=== PATIENT | male | born 1945 | race African-American/Black ===

== ENCOUNTER 2018-05-15 10:16 | Inpatient (IN) | payer OTHER ==
[~2018-05-15] VITALS: Ht 167.6 cm; Wt 79.7 kg
--- NOTE | ~2018-05-15 | HC ---
[facility] [place] [address] CONSULTATION Name: PAT MONTES Room #: 206 ADM IN M.R.#: [id number] Admission: 05/15/18 Attend Phys: Satya Arauz MD Discharge: Date of : 49 Report #: [id number] THIS REPORT FOR: //name// CC: Satya Lam MD [facility] Anastasia Spencer REASON FOR CONSULTATION: Severe iron deficiency. HISTORY OF PRESENT ILLNESS: The patient is a very pleasant 73-year-old gentleman from the [place] area, who has noticed maybe about a 4-5 month history of feeling more short of breath and some abdominal pain with exertion and walking upstairs. He recently had seen his primary care physician, was found to be anemic and he was sent to the ER for further evaluation. Here, his hemoglobin was initially around 6, today it is 5.2. White count 5.2, differential normal, platelets 130, MCV around 70 and it had been in the normal range or even higher in the past. Also, iron tests are back, showed an iron of 14, TIBC 263, percent saturation of 4. Haptoglobin 102, total bilirubin 0.6, creatinine 1.6, folate 7.4, B12 720, absolute retic count 0.082. Note that UA is not done, the patient denies any blood in his urine or stool. Reports that he was Hemoccult negative here. He has not had a UA here. His last colonoscopy was maybe about 10 years ago. He is not sure when his last hemoglobin was checked before last week. He has been told he is anemic in the distant past. His diet is meat and potatoes, eats red meat at least 4-5 times per week, though he says he does eat lot more potatoes. His weight has been about the same, he may have lost a few pounds. REVIEW OF SYSTEMS: Denies unusual headache, mouth sores, trouble swallowing, cough, chest pain, diarrhea or constipation, blood in his urine or stool. Has had some ankle swelling, been doing some diuretics recently. No skin rash. PAST MEDICAL HISTORY: Notable for a history of prostate cancer, recently seen by Dr. Anastasia Spencer, had been treated with radiation therapy, he is thought to be EDWARDO. Also, history of seizures, last one was maybe about 1974. Also, history of coronary artery disease, hypertension. Note, he had an SD in November of 2006 with stenting x 2, has a herniated disk. He is also a Jain. He has high cholesterol. Note also, I believe there is a history of a partial kidney resection in the past. FAMILY HISTORY: No one else with blood disorders. 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 Never smoker. Alcohol: None. Street drugs: None. [address] [address] CONSULTATION Name: PAT MONTES JANE Room #: 206P [facility] IN M.R.#: [id number] Admission: 05/15/18 Attend Phys: Satya Arauz MD Discharge: Date of : 49 Report #: [id number] PHYSICAL EXAMINATION: GENERAL: The patient appears his stated age. VITAL SIGNS: He is 5 feet 6, 167.6 cm. Weight is 175.7 pounds or 79.7 kilograms. Blood pressure is 175/79, O2 sat 100, respirations 18, pulse 73, temperature 97.9. MOOD: He is alert and pleasant. NEUROLOGIC: Speech and thought pattern normal. Moving all extremities. LUNGS: Clear. HEART: Regular rate. ABDOMEN: Soft, no masses. EXTREMITIES: Without clubbing, cyanosis. ASSESSMENT AND PLAN: 1. Severe iron deficiency with a hemoglobin of 5.2. The patient declines blood products. He will check with his elders, I would suggest IV iron, though if he refuses that, would definitely give him an oral iron. He also needs to be seen by GI. They would probably not scope at this time and will probably need upper and lower endoscopy to look for the source of his iron loss. Could also consider PPI or acid marcelle, but we will defer to GI about that. We will also check an EPO level. We will also check with Dr. Hopper for lab from past 2 years. 2. Chronic kidney disease. Continue following, check EPO level. 3. History of prostate cancer with radiation therapy, could be proctitis, endoscopy would rule this out, has no obvious bleeding. As above, we will also check UA. 4. History of pernicious anemia, B12 is adequate. Continue replacement. 5. Hypertension, a little high today. Continue medications. 6. Coronary artery disease and stenting. Continue meds per Dr. Lam. Could consider holding aspirin. 7. Jain. The patient will check with elders. 8. Seizure history. None. We will follow with you. By: 0910 1114 Rafyf Harrison MD /nt
[~2018-05-15 10:16] MED LIST: ACETAMINOPHEN-1 EAC1 PO; ACETAMINOPHEN325 M1 PO; ASPIRIN325 PO; ASPIRIN81 M2 PO; BYSTOLIC20 MG PO; CADUET 10 MG-41 EACH PO; CARBAMAZEPINE100 M2 PO; CARBAMAZEPINE200 M2 PO; CATAPRES-TTS 10.1 MG PO; CATAPRES-TTS 10.1 MG TD; CLONIDINE0.1 PO; CYANOCOBALAM1000 MCG PO; DIOVAN HCT 3201 EAC1 PO; ENDOCET 5-3251 EACH PO; FERREX-150 PLU150 MG PO; HYDRALAZINE 10M10 MG PO; K-DUR10 MEQ PO; LATANOPROST 0.2.5 ML OPHTHALMIC; LORTAB 5-500 T1 EAC1 PO; NAPROSYN500 MG PO; NORCO 5-325 TA1 EACH PO; ONE DAILY MULT1 EAC2 PO; PERCOCET 5-3251 EACH PO; SENOKOT-S1 TA2 PO; VERAMYST10 GM NASAL; VITAMIN B-1000 MCG/2 IM
[2018-05-15 10:17] VITALS: BP 145/55
[2018-05-15] MEDS ORDERED: ATORVASTATIN CA40 MG PO (10:43)
[2018-05-15] MEDS ORDERED: COREG25 MG PO (10:44)
[2018-05-15] MEDS ORDERED: FLONASE 0.05%50 MCG NASAL (10:47)
[2018-05-15] MEDS ORDERED: SPIRONOLACTONE25 M1 PO (10:49)
[2018-05-15] MEDS ORDERED: EDARBI80 MG PO (10:49)
[2018-05-15] MEDS ORDERED: COMBIGAN EYE DR10 ML OPHTHALMIC (10:49)
[2018-05-15] MEDS ORDERED: ALDACTONE50 MG PO (11:13)
[2018-05-15 11:23] LABS: MCV 71.7 fL (80.0-100.0); RDW 18.3 % (10.5-14.5); WBC 5.8 thou/uL (4.0-11.0)
[2018-05-15 11:24] LABS: ABSOLUTE NEUTROPHILS 4.6 thou/uL (1.4-8.2); BASOPHILS 0.1 % (0.0-2.0); HEMATOCRIT 21.3 % (42.0-52.0); LYMPHOCYTES 11.4 % (24.0-44.0); MCH 21.2 pg (26.0-34.0); MCHC 29.5 g/dL (28.0-37.0); MONOCYTES 10.3 % (1.0-8.0); PLATELET COUNT 171 thou/uL (150-400); POLYS 78.2 % (36.0-66.0); RBC 2.97 mil/uL (4.50-6.00)
[2018-05-15 11:26] LABS: ANION GAP 5 mmol/L (7-16); BUN 23 mg/dL (7-18); CHLORIDE 105 mmol/L (98-107); CO2 31 mmol/L (21-32); CREATININE 1.7 mg/dL (0.7-1.3); GLUCOSE 159 mg/dL (74-106); HEMOGLOBIN 6.3 gm/dL (14.0-18.0); SODIUM 141 mmol/L (136-145)
[2018-05-15 11:28] LABS: POTASSIUM 3.9 mmol/L (3.5-5.1)
[2018-05-15 11:34] LABS: ALBUMIN 4.1 g/dL (3.4-5.0); DIRECT BILIRUBIN 0.2 mg/dL (<0.1-0.3); SGOT 37 U/L (15-37); SGPT 26 U/L (30-65); TOTAL BILIRUBIN 0.6 mg/dL (<0.1-1.0); TOTAL PROTEIN 8.2 g/dL (6.4-8.2); TROPONIN-I <0.06 ng/mL (<0.06)
[2018-05-15 14:38] VITALS: BP 164/71
[2018-05-15 15:27] VITALS: BP 174/73
--- NOTE | 2018-05-15 16:18 | NUR ---
ASSUMED CARE OF PT AT 1525 THIS SHIFT. PT WAS ADMITTED FROM ER WITH ANEMIA, AND HEMAGLOBIN 6.3. PT IS A JAHOVAH'S WITNESS AND DOES NOT CONSENT TO BLOOD TRANSFUSION. PT GETS SOB WITH EXCERTION. PT IS COOPERATIVE, AND DENIES ANY PAIN. PT IS CURRENTLY RESTING COMFORTABLY IN ROOM, ASSESSMENTS ARE DOCUMENTED. PT HAS SPOUSE IN ROOM, EDUCATION WAS PROVIDED. PLAN OF CARE IS TO CONTINUE TO MONITOR PT CLOSELY AT THIS TIME.
[2018-05-15 16:26] LABS: ABSOLUTE RETIC COUNT 0.0827 10^6/uL; OBSERVED RETIC COUNT 2.55 % (0.6-2.6)
[2018-05-15 16:28] LABS: % SATURATION 4 % (20-39); IRON 14 ug/dL (65-175); TIBC 363 ug/dL (250-450)
[2018-05-15 16:56] LABS: FOLIC ACID 17.6 ng/mL (8.6-58.9)
[2018-05-15 19:50] VITALS: BP 166/64
[2018-05-16] VITALS (7 sets, daily range): BP systolic 154–175; BP diastolic 60–79
--- NOTE | 2018-05-16 03:46 | NUR ---
PT. AOX4; NO C/O DIZZINESS OR WEAKNESS; ABLE TO AMBULATE FROM BED TO RESTROOM; NO C/O PAIN; SBP ON THE 160'S EARLY ON THE NIGHT; HS BP GIVEN; SBP DECREASED TO 140'S AT MIDNIGHT; ABLE TO REST DURING THE NIGHT; ASSESSMENT CHARGED; FOLLOWING POC;
[2018-05-16 04:27] LABS: CALCIUM 8.8 mg/dL (8.5-10.1); CREATININE 1.6 mg/dL (0.7-1.3); POTASSIUM 3.4 mmol/L (3.5-5.1)
[2018-05-16 04:50] LABS: MCH 20.7 pg (26.0-34.0); MCHC 29.4 g/dL (28.0-37.0); MCV 70.4 fL (80.0-100.0); RBC 2.5 mil/uL (4.50-6.00); RDW 18.1 % (10.5-14.5); WBC 5.2 thou/uL (4.0-11.0)
[2018-05-16 05:00] LABS: HEMATOCRIT 17.6 % (42.0-52.0); HEMOGLOBIN 5.2 gm/dL (14.0-18.0)
--- NOTE | 2018-05-16 08:21 | EKG ---
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1945 Requested By: Juice Fisher Order Number: [id number] MD: eLx Skinner Measurements Intervals [place] Rate: 77 P: 20 MO: 217 QRS: -30 QRSD: 121 T: 124 QT: 426 QTc: 483 Interpretive Statements Sinus rhythm Borderline prolonged MO interval Left atrial enlargement LVH with IVCD and secondary repol abnrm Possible inferior infarct, old Compared to ECG 11/14/2012 06:59:[address] segment elevation is no longer present Right bundle-branch block no longer present Electronically Signed On 05-16-2018 8:21:04 SYSTEMS DEVELOPMENT MANAGER by Lex Skinner [email or web address] <ELECTRONICALLY SIGNED> By: Lex Skinner MD, [facility] 05/16/18 0821 1524 1524 Lex Skinner MD, [facility] /EPI
--- NOTE | 2018-05-16 08:35 | EKG ---
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 : 1945 Requested By: Julia Ruano Order Number: [id number] MD: Lex Skinner Measurements Intervals [place] Rate: 76 P: 49 NH: 217 QRS: -35 QRSD: 121 T: 120 QT: 427 QTc: 481 Interpretive Statements Sinus rhythm Borderline prolonged [place] interval T-wave abnormality, consider lateral ischemia Borderline prolonged QT interval Compared to ECG 11/14/2012 06:59:59 No significant change was found Electronically Signed On 05-16-2018 8:35:34 [place] [place] by Lex Skinner [email or web address] <ELECTRONICALLY SIGNED> By: Lex Skinner MD, [facility] 05/16/18 0835 0707 0707 Lex Skinner MD, [facility] /EPI
--- NOTE | 2018-05-16 10:05 | 2DMMODE ---
[facility] [address] [place] [address] 2 D/M-MODE ECHOCARDIOGRAM Name: SIMONPAT JANE Room #: 206-P ADM IN M.R.#: [id number] Admission: 05/15/18 Attend Phys: Satya Arauz MD Discharge: Date of : 49 Date of Service: 05/16/18 1005 Report #: [id number] THIS REPORT FOR: //name// APPROVED REPORT Study performed: 05/16/2018 08:59:37 EXAM: Comprehensive 2D, Doppler, and color-flow Echocardiogram Patient Location: Bedside Room #: 206 Status: routine BSA: 1.89 HR: 71 bpm BP: 163/73 mmHg Rhythm: NSR Other Information Study Quality: Good Indications Dyspnea CAD Cardiomyopathy Hypertension/HDD 2D Dimensions RVDd: 40.68 mm IVSd: 15.64 (7-11mm) LVOT Diam: 19.18 (18-24mm) LVDd: 52.59 mm PWd: 14.28 (7-11mm) Ascending Ao: 30.46 (22-36mm) LVDs: 41.54 (25-40mm) Aortic Root: 33.17 mm IVC: 22.00 mm Volumes Left Atrial Volume (Systole) Single Plane 4CH: 110.35 mL Single Plane 2CH: 71.49 mL LA ESV Index: 51.00 mL/m2 Aortic Valve AoV Peak Fredy.: 2.03 m/s AO Peak Gr.: 16.56 mmHg LVOT Max P.24 mmHg LVOT Max V: 1.14 m/s RENA Vmax: 1.62 cm2 Mitral Valve E/A Ratio: 1.4 [facility] [address] [place] [address] 2 D/M-MODE ECHOCARDIOGRAM Name: PAT MONTES JANE Room #: 206-P [facility] IN [facility]#: [id number] Admission: 05/15/18 Attend Phys: Satya Arauz MD Discharge: Date of : 49 Date of Service: 05/16/18 1005 Report #: [id number] MV Decel. Time: 211.68 ms MV E Max Fredy.: 1.57 m/s MV A Fredy.: 1.11 m/s MV PHT: 61.39 ms IVRT: 50.75 ms Pulmonary Valve PV Peak Fredy.: 1.19 m/s PV Peak Gr.: 5.70 mmHg Pulmonary Vein P Vein S: 0.44 m/s P Vein A: 0.18 m/s P Vein D: 0.63 m/s P Vein A Dur.: 60.0 msec P Vein S/D Ratio: 0.70 Tricuspid Valve TR Peak Fredy.: 3.34 m/s TR Peak Gr.: 44.56 mmHg PA Pressure: 55.00 mmHg Left Ventricle The left ventricle is normal size. Moderate concentric left ventricular hypertrophy. Left ventricular systolic function is mildly decreased. LVEF is 45%. Grade IV - fixed restrictive diastolic dysfunction. Right Ventricle The right ventricle is normal size. The right ventricular systolic function is normal. Atria Left atrium is dilated. Right atrium is dilated. Aortic Valve The aortic valve is normal in structure. No aortic regurgitation is present. There is no aortic valvular stenosis. Mitral Valve The mitral valve is normal in structure. Mild mitral regurgitation. No evidence of mitral valve stenosis. Tricuspid Valve The tricuspid valve is normal in structure. There is mild tricuspid regurgitation. Estimated PAP 55 mmHg. There is moderate pulmonary hypertension. [facility] [address] [place] [address] 2 D/M-MODE ECHOCARDIOGRAM Name: PAT MONTES Room #: 206-P [facility] IN M.R.#: [id number] Admission: 05/15/18 Attend Phys: Satya Arauz MD Discharge: Date of : 49 Date of Service: 05/16/18 1005 Report #: [id number] Pulmonic Valve The pulmonary valve is normal in structure. Mild pulmonic regurgitation. Great Vessels The aortic root is normal in size. IVC is dilated and collapses >50% with inspiration. Pericardium There is no pericardial effusion. <Conclusion> The left ventricle is normal size. Moderate concentric left ventricular hypertrophy. Left ventricular systolic function is mildly decreased. LVEF is 45%. Grade IV - fixed restrictive diastolic dysfunction. The right ventricle is normal size. Left atrium is dilated. Right atrium is dilated. The aortic valve is normal in structure. Mild mitral regurgitation. Mild mitral regurgitation. There is mild tricuspid regurgitation. Estimated PAP 55 mmHg. There is moderate pulmonary hypertension. The aortic root is normal in size. There is no pericardial effusion. <ELECTRONICALLY SIGNED> By: Dmitri Lam MD, FACC 05/16/18 1005 1005 100 Dmitri Lam MD, FACC /INF
[2018-05-16 11:52] LABS: URINE BILIRUBIN NEGATIVE (Negative); URINE BLOOD NEGATIVE (Negative); URINE CLARITY CLEAR; URINE COLOR YELLOW; URINE GLUCOSE-RANDOM* NEGATIVE (Negative); URINE KETONES NEGATIVE (Negative); URINE LEUKOCYTES NEGATIVE (Negative); URINE NITRITE NEGATIVE (Negative); URINE PROTEIN (DIPSTICK) NEGATIVE (Negative); URINE UROBILINOGEN 0.2 E.U./dl (0.2-1.0)
--- NOTE | 2018-05-16 19:27 | NUR ---
ASSUMED PATIENT CARE THIS AM. PATIENT LYING IN BED, A&O. ROOM AIR. UP AD WENDY. NO COMPLAINTS STATED. TOLERATING DIET. PLAN FOR EGD IN AM. PATIENT CONSENT SIGNED AND IN CHART.
--- NOTE | 2018-05-16 22:17 | HC ---
[facility] [address] CONSULTATION Name: PAT MONTES Room #: 206-[facility] IN M.R.#: [id number] Admission: 05/15/18 Attend Phys: Satya Arauz MD Discharge: Date of : 47 Report #: [id number] THIS REPORT FOR: //name// CC: Satya Lam MD [facility] Raffy Harrison MD DATE OF SERVICE: 05/16/2018 PATIENT OF: Dr. Vladislav Hopper, Dr. Satya Arauz and Dr. Raffy Harrison. CHIEF COMPLAINT: This is a very pleasant 73-year-old -[place]er male whom I am asked to see for possible etiologies of iron deficiency anemia. The patient denies any hematemesis, hematochezia or melena. He does eat red meat in his diet. He is not a blood donor and he denies any hematemesis, hematochezia or melena. His MCV is low. He has history also of vitamin B12 deficiency and has been on vitamin B12 supplements and his B12 level is normal. His iron saturation is 4%. PAST MEDICAL HISTORY: Significant for the B12 deficiency. He has a history of a renal cell carcinoma and that was resected in 2001. He has a history of ischemic cardiomyopathy, iron deficiency, seizures. He is a Sikh and does not want any blood products. He has a history of chest heaviness and shortness of breath with exertion. He has periumbilical pain with exertion as well that is relieved by rest. He is anemic with a hemoglobin of 5.2 this morning, down from 6.3 yesterday after hydration. We have not seen any hematemesis, hematochezia or melena. The patient denies having any. He has had one stool that was checked and was heme negative thus far. He has a history of hyperlipidemia, hypertension and he has coronary artery disease and had a myocardial infarction in 2006 and he has had coronary artery bypass grafting done. He has mild renal insufficiency with a of 1.7. Liver enzymes are within normal limits. PAST SURGICAL HISTORY: Significant for the coronary artery bypass grafting. He had a partial nephrectomy for renal cell carcinoma. ALLERGIES: AMOXICILLIN AND LABETALOL. MEDICATIONS: Prior to admission include hydralazine, carbamazepine, Senokot-S, Lipitor, Coreg, Flonase, Combigan eye drops, Edarbi, spironolactone, aspirin, vitamin B12, clonidine, latanoprost eyedrops and he takes potassium supplements at home. [address] [address] CONSULTATION Name: PAT MONTES JANE Room #: 206-P ADM IN M.R.#: [id number] Admission: 05/15/18 Attend Phys: Satya Arauz MD Discharge: Date of : 47 Report #: [id number] SOCIAL HISTORY: He does not drink alcohol. He does not smoke. He has never had a blood transfusion. He is refusing blood transfusion at this time because he is a Sikh. FAMILY HISTORY: Significant for heart disease, is negative for colon polyps, colon cancer, Crohn disease and ulcerative colitis. REVIEW OF SYSTEMS: He denies any dysphagia, odynophagia, gastroesophageal reflux, hiatal hernia, peptic ulcer disease. His weight is stable. His appetite has been good. He denies any hematemesis, hematochezia or melena. He has occasional constipation and takes some stool softeners for that. He complains of crampy periumbilical pain that occurs with exertion and is relieved by rest. I believe this to be probable intestinal ischemia from his low hemoglobin of 5.2. He denies any history of jaundice, hepatitis, cholelithiasis, cholecystitis or pancreatitis. He has a history of radiation for prostate cancer. He denies any abdominal pain with eating. PHYSICAL EXAMINATION: GENERAL: Reveals a well-developed, well-nourished 73-year-old -[place]er male, in no apparent distress at the time of the examination. He is awake, alert, oriented x 4 and cooperative and pleasant to converse with. He is lying in bed and appears comfortable. His is at the bedside. HEENT: He is normocephalic, atraumatic and anicteric. HEART: Rate and rhythm are regular with a normal S1 and S2. LUNGS: Clear in all perez. ABDOMEN: Soft. Bowel sounds are present in all 4 quadrants. There is no palpable organomegaly or mass. There is no tenderness, rebound or guarding. EXTREMITIES: Warm and dry. No peripheral cyanosis, clubbing or edema. NEUROLOGIC: He appears grossly intact without lateralizing signs, but I did not test him extensively neurologically speaking. SIGNIFICANT LABORATORY DATA: Shows a creatinine today of 1.6, BUN 22. INR is normal. CBC shows a white count of 5.2 this morning, RBCs 2.50, hemoglobin is 5.2, hematocrit 17.6, MCV is 70.4, MCH 20.7, MCHC 29.4, RDW is 18.1 and platelets are 137,000. His observed retic count is 2.55, absolute retic count is 0.0827, mean reticulocyte volume is 106.7 and retic fractionation is 0.45. Haptoglobin is 102. Sed rate is 30, folate is 17.6. Vitamin B12 is 720. Erythropoietin is pending. Stools reportedly heme negative in the ER. Chest x-ray showed mild vascular congestion and shows patchy bilateral predominantly perihilar and bibasilar opacities suggestive of atelectasis versus pneumonitis. There is cardiomegaly with mild vascular congestion, no pneumothorax or significant pleural effusion is seen. IMPRESSION: 1. Severe iron deficiency anemia in a patient who is a Sikh and [facility] [address] [place] [address] CONSULTATION Name: PAT MONTES Room #: [address] [place] [address] IN .R.#: [id number] Admission: 05/15/18 Attend Phys: Satya Arauz MD Discharge: Date of : 47 Report #: [id number] refuses blood transfusion. Iron levels are extraordinarily low indicating that as he eats a normal diet with red meat, he is losing blood from his gastrointestinal tract somewhere. He is not a blood donor. He has a history of a normal hemoglobin of 14 a few years ago. This is gastrointestinal blood loss until proven otherwise. 2. History of coronary artery disease status post coronary artery bypass grafting and myocardial infarction in 2006. 3. Hypertension. 4. Hyperlipidemia. 5. Chest heaviness and shortness of breath with exertion and intestinal ischemia pain in the periumbilical region with exertion that is all relieved by rest. 6. B12 deficiency by history. I am not sure why he is B12 deficient. 7. History of seizures. 8. History of an ischemic cardiomyopathy. 9. Renal cell carcinoma. RECOMMENDATION: My recommendations were for him to have an EGD and a colonoscopy performed; his last colonoscopy was 7 years ago. He says I am not due for one yet and I said it does not matter if you do or not, you are iron deficient and you need to have one. He is resistant to having a colonoscopy at this time primarily because of the colon prep he says, but will allow us to do an EGD tomorrow morning, so I am putting that on the schedule. He will be n.p.o. after midnight. We will obtain consent for EGD by me. We will monitor his H and H closely. I think he should have IV iron replacement as soon as possible as he is not going to take any blood products. We will start him on oral Protonix. We will allow him to have a regular diet, low sodium; we will actually give him heart healthy, n.p.o. after midnight. Thank you very much once again for allowing me to participate in his care Dr. Hopper and Dr. Arauz. <ELECTRONICALLY SIGNED> By: Sophia Teixeira DO 05/16/18 2217 1054 57 Sophia Teixeira DO /nt
[2018-05-17 00:05] VITALS: BP 183/80
[2018-05-17 03:26] LABS: ALBUMIN 3.5 g/dL (3.4-5.0); CALCIUM 8.6 mg/dL (8.5-10.1); CREATININE 1.4 mg/dL (0.7-1.3); TOTAL BILIRUBIN 0.6 mg/dL (<0.1-1.0); TOTAL PROTEIN 6.8 g/dL (6.4-8.2)
[2018-05-17 04:11] LABS: MCH 21.1 pg (26.0-34.0)
[2018-05-17 04:13] LABS: MCHC 29.9 g/dL (28.0-37.0); MCV 70.5 fL (80.0-100.0); PLATELET COUNT 126 thou/uL (150-400); RBC 2.45 mil/uL (4.50-6.00); RDW 17.9 % (10.5-14.5); WBC 5.2 thou/uL (4.0-11.0)
[2018-05-17 04:15] VITALS: BP 172/82
[2018-05-17 04:19] LABS: HEMATOCRIT 17.2 % (42.0-52.0); HEMOGLOBIN 5.2 gm/dL (14.0-18.0)
--- NOTE | 2018-05-17 04:52 | NUR ---
PT. AOX4; NO C/O PAIN; HIGH BP BEFORE HS BP MEDICATION; AT MIDNIGHT SBP ON 180'S; PARALEGAL SUPERVISOR CONTACTED; ORDERS RECEIVED; ONE TIME MEDICATION GIVEN; AT 4AM SBP ON 170'S; MORNING BP MEDICATION WILL BE GIVEN AT 6AM; NPO AFTER MIDNIGHT; ASSESSMENT CHARGED; FOLLOWING POC; WILL PASS ON REPORT.
[2018-05-17 06:53] LABS: ABSOLUTE NEUTROPHILS 4.1 thou/uL (1.4-8.2); ANISOCYTOSIS 1+; HYPOCHROMASIA 2+; LARGE PLATELETS FEW; MICROCYTES 1+; OVALOCYTES 2+
[2018-05-17 07:25] VITALS: BP 180/74
--- NOTE | 2018-05-17 09:52 | NUR ---
ASSUMED PATIENT CARE THIS AM. PATIENT LYING IN BED, A&O. ROOM AIR. UP AD WENDY. NO COMPLAINTS STATED. PATIENT NPO FOR EGD THIS AM. PATIENT OFF UNIT TO GI AT THIS TIME. WILL RESUME CARE WHEN PATIENT BACK ON UNIT.
[2018-05-17 11:45] VITALS: BP 135/62
[2018-05-17 16:25] VITALS: BP 151/70
--- NOTE | 2018-05-17 16:33 | NUR ---
PATIENT RETURNED TO UNIT AROUND 1145. AT BEDSIDE. PATIENT AWAKE AND ALERT. NO COMPLAINTS STATED. PATIENT TOLERATING MIRALAX PREP AT THIS TIME WITH GATORADE. NO COMPLAINTS STATED. NPO AT MIDNIGHT.
[2018-05-17 19:50] VITALS: BP 165/71
--- NOTE | 2018-05-17 22:52 | P ---
[facility] [place] [address] PROCEDURE REPORT Name: PAT MONTES Room #: 206-P ADM IN M.R.#: [id number] Admission: 05/15/18 Attend Phys: Satya Arauz MD Discharge: Date of : 49 Report #: [id number] THIS REPORT FOR: //name// CC: Satya Hopper MD DATE OF SERVICE: 05/17/2018 PROCEDURE: EGD with snare polypectomy and biopsies. PATIENT OF: Dr. Vladislav Hopper and Dr. Satya Arauz. INDICATION FOR PROCEDURE: This patient has a severe symptomatic iron deficiency anemia. He is a Druze and refuses blood transfusions under any circumstances. EGD is being performed today to try to identify the source of blood loss from his GI tract. Informed consent for this procedure was obtained prior to the administration of any medication. The risks of the procedure, which include bleeding, perforation, infection, complications of sedation and the possibility I could miss something have been explained to the patient and he has indicated his consent by signing. DESCRIPTION OF PROCEDURE: Propofol was slowly titrated before and during this procedure for patient comfort. The Olympus upper videoscope was introduced through the upper esophageal sphincter and advanced under direct visualization to the third portion of the duodenum. Findings are noted on withdrawal of the scope. The duodenal mucosa appears normal throughout its entirety and there is bile seen exiting the ampulla. Pylorus, normal mucosa. Antrum, there are stripes of erythema in the antrum of the stomach. Biopsies were obtained x 2 for histopathology. Good hemostasis is noted after the biopsies were obtained. There is a 5 mm sessile polyp in the antrum of the stomach that is removed in toto with a cold snare and sent to pathology lab. Good hemostasis was noted after that polypectomy as well. Body, normal mucosa. Cardia and fundus, normal mucosa. Retroflexed view did not reveal any significant hiatal hernia. The scope was withdrawn into the esophagus. The Z-line is appropriately located at the top of the gastric folds and appears normal. The esophageal mucosa appears normal throughout its entirety. The scope is withdrawn. The patient went to the recovery area in stable condition. He tolerated the procedure well. IMPRESSION: 1. A 5 mm erythematous antral polyp removed as above with a cold snare. 2. Antral erythema, biopsied. 3. Normal esophagus and duodenum to the third portion. [address] [address] PROCEDURE REPORT Name: PAT MONTES Room #: 206-P [facility] IN M.R.#: [id number] Admission: 05/15/18 Attend Phys: Satya Arauz MD Discharge: Date of : 49 Report #: [id number] 4. Source of severe iron deficiency anemia is not clear from this examination. RECOMMENDATIONS: Are to proceed with colonoscopy as the next study if the patient will allow it. We will monitor his H and H daily. We will continue the iron transfusions. Thank you very much once again for allowing me to participate in his care, Dr. Hopper and Dr. Arauz. <ELECTRONICALLY SIGNED> By: Sophia Teixeira DO 05/17/18 2252 1116 54 Sophia Teixeira DO /nt
[2018-05-18 04:13] LABS: OBSERVED RETIC COUNT 3.69 % (0.6-2.6)
[2018-05-18 04:16] LABS: MCH 20.9 pg (26.0-34.0); RBC 2.61 mil/uL (4.50-6.00); WBC 5.4 thou/uL (4.0-11.0)
[2018-05-18 04:19] LABS: MCHC 29.2 g/dL (28.0-37.0); MCV 71.5 fL (80.0-100.0); PLATELET COUNT 122 thou/uL (150-400); RDW 18.4 % (10.5-14.5)
[2018-05-18 04:24] LABS: CALCIUM 8.4 mg/dL (8.5-10.1); CREATININE 1.4 mg/dL (0.7-1.3); POTASSIUM 3.5 mmol/L (3.5-5.1)
[2018-05-18 04:27] LABS: HEMOGLOBIN 5.4 gm/dL (14.0-18.0)
[2018-05-18 04:28] LABS: HEMATOCRIT 18.7 % (42.0-52.0)
[2018-05-18 04:45] VITALS: BP 163/62
--- NOTE | 2018-05-18 05:35 | NUR ---
ASSESSMENTS CHARTED. PATIENT FINISHING COLON PREP AT START OF SHIFT. POTASSIUM LAB STILL LOW, GAVE ORAL DOSE PER PROTOCOL RANGE. NPO SINCE MIDNIGHT. UP AT WENDY. PATIENT SIGNED CONSENT FORM. PROCEDURE SCHEDULED FOR AROUND 10:00.
[2018-05-18 06:15] VITALS: BP 175/70
[2018-05-18 07:10] LABS: ABSOLUTE NEUTROPHILS 4.1 thou/uL (1.4-8.2); IMMATURE MONONUCLEARS 1 %
[2018-05-18 07:11] LABS: ANISOCYTOSIS 2+; HYPOCHROMASIA 3+; LARGE PLATELETS OCCASIONAL; MICROCYTES 1+; OVALOCYTES 2+; POIKILOCYTOSIS 1+
[2018-05-18 07:12] LABS: TARGET CELLS FEW
[2018-05-18 07:40] VITALS: BP 173/71
[2018-05-18 11:40] VITALS: BP 189/74
[2018-05-18 16:30] VITALS: BP 146/63
--- NOTE | 2018-05-18 16:56 | NUR ---
ASSESSMENT CHARTED - MEDS PER JUN - NO CO'S OF PAIN OR NAUSEA. RICHARD DIET AND FLUIDS. PT HAD COLONOSCOPY COMPLETETD THIS AM. NO CO'S POST PROCEDURE. UP IN ROOM TOLERATED. CLONODINE INCREASED TO 0.2MG TODAY. AT THE BEDSIDE FOR MOST OF THE DAY. NO CO'S AT THE PRESENT TIME.
--- NOTE | 2018-05-18 17:49 | P ---
[place] [address] PROCEDURE REPORT Name: PAT MONTES Room #: 206-P [facility] IN M.R.#: [id number] Admission: 05/15/18 Attend Phys: Satya Arauz MD Discharge: Date of : 49 Report #: [id number] THIS REPORT FOR: //name// CC: Satya Hopper MD BRIEF HISTORY: The patient is a 73-year-old male with a marked iron deficiency anemia with a hemoglobin of 5.2 and MCV of 71, and a low serum iron. Last colonoscopy was 7-8 years ago. PREOPERATIVE DIAGNOSIS: Iron deficiency anemia. POSTOPERATIVE DIAGNOSIS: Small internal hemorrhoids. MEDICATIONS: Deep sedation with propofol per Anesthesia. SPECIMEN: None. ESTIMATED BLOOD LOSS: None. PROCEDURE: Colonoscopy to cecum and terminal ileum. FINDINGS: Prior to propofol sedation, procedure of colonoscopy discussed with the patient as well as potential risks and its complications. He indicates he understands and desires to proceed. DESCRIPTION OF PROCEDURE: With the patient in left lateral decubitus position, digital examination was completed, which revealed no abnormalities. Subsequently, the Olympus video colonoscope was introduced in the rectum, advanced under direct vision to the cecum. Done with minimal difficulty. The cecum was identified by the ileocecal valve and the appendiceal orifice. I was able to visualize the distal segment of terminal ileum, which was inspected and noted to be unremarkable. At that point, the scope was slowly withdrawn and careful circumferential views obtained. Upon slow withdrawal of the scope, the prep was good. The mucosa was within normal limits, normal vascular pattern and normal light reflex. As we withdrew the scope, no neoplastic lesions were seen. No bleeding lesions were seen. Blood was not seen on this examination. Vascular ectasias were not seen. A site of bleeding or source of blood loss was not identified. Scope was withdrawn in the rectum. No abnormalities were seen. Upon retroflexion, small hemorrhoids were seen. The patient has a history of prostate cancer and previous radiation therapy, but I do not find evidence of significant vascular ectasias of the rectum. Scope was withdrawn. The patient tolerated the procedure well. DISPOSITION: The patient with marked iron deficiency anemia. I do not find evidence of bleeding lesions or potential bleeding lesion on exam today. Follow [address] [address] PROCEDURE REPORT Name: PAT MONTES Room #: 206-P [facility] IN M.R.#: [id number] Admission: 05/15/18 Attend Phys: Satya Arauz MD Discharge: Date of : 49 Report #: [id number] up on an M2 capsule study would be reasonable. Suggest iron replacement. I would suggest a screening colonoscopy in 10 years. <ELECTRONICALLY SIGNED> By: Ren Jamison MD 05/18/18 1749 [id number] 1423 Ren Jamison MD /nt
--- NOTE | 2018-05-18 17:49 | P ---
[facility] [address] [place] [address] PROCEDURE REPORT Name: PAT MONTES Room #: 206-P ADM IN M.R.#: [id number] Admission: 05/15/18 Attend Phys: Satya Arauz MD Discharge: Date of : 49 Report #: [id number] THIS REPORT FOR: //name// CC: Satya Hopper MD BRIEF HISTORY: The patient is a 73-year-old male with marked microcytic anemia. DICTATION ENDS HERE <ELECTRONICALLY SIGNED> By: Ren Jamison MD 05/18/18 1749 0923 1412 Ren Jamison MD /nt
[2018-05-18 20:00] VITALS: BP 164/66
[2018-05-19 00:15] VITALS: BP 136/57
[2018-05-19 04:20] LABS: RDW 18.1 % (10.5-14.5); WBC 6.5 thou/uL (4.0-11.0)
[2018-05-19 04:22] LABS: BASOPHILS 0.1 % (0.0-2.0); LYMPHOCYTES 11.7 % (24.0-44.0); MCHC 30.6 g/dL (28.0-37.0); MCV 71.8 fL (80.0-100.0); MONOCYTES 11.4 % (1.0-8.0); PLATELET COUNT 127 thou/uL (150-400); POLYS 76.8 % (36.0-66.0); RBC 2.55 mil/uL (4.50-6.00)
[2018-05-19 04:26] LABS: HEMATOCRIT 18.3 % (42.0-52.0); HEMOGLOBIN 5.6 gm/dL (14.0-18.0)
[2018-05-19 04:30] VITALS: BP 152/59
--- NOTE | 2018-05-19 04:30 | NUR ---
ASSESSMENT CHARTED. CRITICAL TEST RESULTS CAME BACK AGAIN THIS MORNING. INFORMED LEIDY VELAZCO. PATIENT REFUSES BLOOD PRODUCTS AND IS SLOWLY TRENDING UP. PATIENT WOULD LIKE TO GO HOME, BUT REALIZES MORE TREATMENT IS NEEDED. PLAN OF CARE IS TO RECEIVE MORE IRON TODAY.
[2018-05-19 06:24] LABS: ANISOCYTOSIS 2+; HYPOCHROMASIA 2+; MICROCYTES 1+; POLYCHROMASIA 1+
[2018-05-19 07:55] VITALS: BP 137/56
[2018-05-19] MEDS ORDERED: PROTONIX 20 MG20 M1 PO (09:27)
[2018-05-19] MEDS ORDERED: CLONIDINE HCL0.2 M2 PO (09:27)
[2018-05-19] MEDS ORDERED: ACETAMINOPHEN325 M1 PO (09:27)
[2018-05-19] MEDS ORDERED: DEMADEX 2020 MG/1 TA PO (09:27)
[2018-05-19] MEDS ORDERED: IRON325 PO (09:27)
[2018-05-19 10:05] VITALS: BP 139/56
--- NOTE | 2018-05-19 12:47 | NUR ---
ASSESSMENT CHARTED - MEDS PER JUN - NO CO'S OF PAIN OR NAUSEA. RICHARD DIET AND FLUIDS. UP AD WENDY IN ROOM. PT HOME THIS AFTERNOON - INSTRUCTION RE HOME MEDS/ CARE AND FOLLOW GIVEN TO PATIENT AND SPOUSE - STATED UNDERSTANDING. PT LEFT UNIT VIA WHEELCHAIR - HOME VIA PVT VEHICLE ACCOMAPNIED BY - MONITOR AND IV REMOVED PRIOR TO D/C. NO CO'S AT TIME OF D/C.
--- NOTE | 2018-05-21 13:06 | PATH ---
[facility] [place] [address] PATHOLOGY RPT PROCEDURE Name: PAT MONTES Room #: 206-P DIS IN M.R.#: [id number] Admission: 05/15/18 Date of : 49 Discharge: 05/19/18 Report #: [id number] Path Case #: [id number] [facility] Accession Number: [id number] . 01 Material submitted: . PART A: GASTRIC POLYP PART B: RANDOM GASTRIC BIOPSIES . 01 Clinical history: . Pre-OP DX: Symptomatic anemia Post-OP DX: Gastric polyp, gastric erythema . 02 Diagnosis: A. Polyp, gastric polyp, endoscopic biopsy: - Compatible with a hyperplastic polyp. - Negative for dysplasia or intestinal metaplasia. . B. Gastric mucosa, random gastric, endoscopic biopsy: - Moderate reactive gastropathy. - Negative for intestinal metaplasia or atrophy. - Negative for Helicobacter pylori (properly-controlled immunohistochemical stain performed). . (IUV:mml; 05/18/2018) QLM/05/18/2018 . 02 Electronically signed: . Kaylen Mijares MD, Pathologist NPI- [id number] . 01 Gross description: . A. Received in formalin labeled "Pat Montes, gastric polyp," are 2 segments of ny soft tissue measuring 0.9 x 0.3 x 0.3 cm in aggregate dimensions and ranging from 0.4 to 0.5 cm in maximum dimension. The specimen is submitted entirely in cassette A1. . B. Received in formalin labeled "Pat Montes, random gastric biopsies," is a single segment of ny soft tissue measuring 0.4 cm in maximum dimension. The specimen is entirely submitted in cassette B1. (TSD; 05/17/2018) TOB/TOB . 02 Pathologist provided ICD-10: K31.7, K31.9 . 02 CPT . 847305, 799089, [id number] [place] [address] PATHOLOGY RPT PROCEDURE Name: PAT MONTES JANE Room #: 206-P [facility] IN [facility].#: [id number] Admission: 05/15/18 Date of : 49 Discharge: 05/19/18 Report #: [id number] Path Case #: [id number] Specimen Comment: A courtesy copy of this report has been sent to Specimen Comment: [phone], , . Specimen Comment: Report sent to ,DR MONTAGUE / DR ALLEN Specimen Comment: A duplicate report has been generated due to demographic updates. Performed at: [address], [place], [place] [id number] MD Jacobo Blanco MD Phone: [phone] Performed at: [address] [id number] MD Kaylen Mijares MD Phone: [phone]
== END 2018-05-19 12:25 | disposition home or self-care (01) | DRG 377 ==
LOC: ER 10:16 → 2N 12:40 → EROBS 12:40 → 2N 15:28
PROVIDERS: Emergency Medicine; Internal Medicine Cardiovascular Disease; Internal Medicine Hematology & Oncology; Nurse Practitioner Adult Health; Nurse Practitioner Family; ADMIT Hospitalist
DX: K92.2 Gastrointestinal hemorrhage, unspecified (principal); E43 Unspecified severe protein-calorie malnutrition; N17.9 Acute kidney failure, unspecified; K55.9 Vascular disorder of intestine, unspecified; I13.0 Hypertensive heart and chronic kidney disease with heart failure and stage 1 through stage 4 chronic kidney disease, or unspecified chronic kidney disease; D62 Acute posthemorrhagic anemia; D51.0 Vitamin B12 deficiency anemia due to intrinsic factor deficiency; I25.10 Atherosclerotic heart disease of native coronary artery without angina pectoris; E78.00 Pure hypercholesterolemia, unspecified; I25.5 Ischemic cardiomyopathy; E78.5 Hyperlipidemia, unspecified; L53.8 Other specified erythematous conditions; K64.8 Other hemorrhoids; G40.909 Epilepsy, unspecified, not intractable, without status epilepticus; E87.70 Fluid overload, unspecified; M62.84 Sarcopenia; N18.3 Chronic kidney disease, stage 3 (moderate); E87.6 Hypokalemia; F32.9 Major depressive disorder, single episode, unspecified; K31.7 Polyp of stomach and duodenum; Z90.5 Acquired absence of kidney; Z85.53 Personal history of malignant neoplasm of renal pelvis; I25.2 Old myocardial infarction; Z95.5 Presence of coronary angioplasty implant and graft; Z88.1 Allergy status to other antibiotic agents; Z88.8 Allergy status to other drugs, medicaments and biological substances; Z85.46 Personal history of malignant neoplasm of prostate; Z92.3 Personal history of irradiation; Z95.1 Presence of aortocoronary bypass graft; Z82.49 Family history of ischemic heart disease and other diseases of the circulatory system
CPT/HCPCS: 10081; 62110; 62900; 70005

== ENCOUNTER → 2019-10-08 | Outpatient (CLI) | payer OTHER ==
[~2019-10-08] MED LIST changes: +ALDACTONE50 MG PO; +ATORVASTATIN CA40 MG PO; +CLONIDINE HCL0.2 M2 PO; +COMBIGAN EYE DR10 ML OPHTHALMIC; +COREG25 MG PO; +DEMADEX 2020 MG/1 TA PO; +EDARBI80 MG PO; +FLONASE 0.05%50 MCG NASAL; +IRON325 PO; +PROTONIX 20 MG20 M1 PO; +SPIRONOLACTONE25 M1 PO
== END ==
LOC: SJCVC 11:06
PROVIDERS: ATTEND Internal Medicine Cardiovascular Disease
DX: I44.0 Atrioventricular block, first degree (principal); I11.9 Hypertensive heart disease without heart failure; R94.31 Abnormal electrocardiogram [ECG] [EKG]; I25.810 Atherosclerosis of coronary artery bypass graft(s) without angina pectoris; E78.00 Pure hypercholesterolemia, unspecified; I65.23 Occlusion and stenosis of bilateral carotid arteries; R53.83 Other fatigue; I25.5 Ischemic cardiomyopathy; Z86.79 Personal history of other diseases of the circulatory system; Z79.899 Other long term (current) drug therapy; Z95.1 Presence of aortocoronary bypass graft; Z82.49 Family history of ischemic heart disease and other diseases of the circulatory system

== ENCOUNTER → 2019-12-02 | Outpatient (CLI) | payer OTHER | LOC: SJCVCIMAG 07:09 | PROVIDERS: ATTEND Internal Medicine Cardiovascular Disease | DX: I44.0 Atrioventricular block, first degree (principal); I45.10 Unspecified right bundle-branch block; I42.9 Cardiomyopathy, unspecified; R53.83 Other fatigue; I11.0 Hypertensive heart disease with heart failure; I50.9 Heart failure, unspecified; E78.5 Hyperlipidemia, unspecified; I25.810 Atherosclerosis of coronary artery bypass graft(s) without angina pectoris; I25.2 Old myocardial infarction; Z79.899 Other long term (current) drug therapy; Z95.1 Presence of aortocoronary bypass graft; Z88.1 Allergy status to other antibiotic agents ==

== ENCOUNTER → 2020-06-23 | Outpatient (CLI) | payer OTHER | LOC: SJCVCIMAG 09:20 → SJCVC 09:20 | PROVIDERS: ATTEND Internal Medicine Cardiovascular Disease | DX: R94.31 Abnormal electrocardiogram [ECG] [EKG] (principal); I08.8 Other rheumatic multiple valve diseases; I45.10 Unspecified right bundle-branch block; I11.9 Hypertensive heart disease without heart failure; I25.10 Atherosclerotic heart disease of native coronary artery without angina pectoris; R53.83 Other fatigue; E78.00 Pure hypercholesterolemia, unspecified; I25.5 Ischemic cardiomyopathy; I65.23 Occlusion and stenosis of bilateral carotid arteries; Q21.1 Atrial septal defect; Z88.1 Allergy status to other antibiotic agents; Z95.1 Presence of aortocoronary bypass graft; Z79.899 Other long term (current) drug therapy ==

== ENCOUNTER → 2021-02-12 | Outpatient (CLI) | payer OTHER | LOC: SJCVCIMAG 09:05 | PROVIDERS: ATTEND Internal Medicine Cardiovascular Disease | DX: I08.8 Other rheumatic multiple valve diseases (principal); I71.9 Aortic aneurysm of unspecified site, without rupture; I25.10 Atherosclerotic heart disease of native coronary artery without angina pectoris; I42.9 Cardiomyopathy, unspecified; R53.83 Other fatigue; I10 Essential (primary) hypertension; E78.00 Pure hypercholesterolemia, unspecified; Z95.1 Presence of aortocoronary bypass graft; Z88.1 Allergy status to other antibiotic agents; Z79.899 Other long term (current) drug therapy ==